=== PATIENT | male | born 1940 | race Caucasian/White ===

== ENCOUNTER 2023-04-28 19:30 | Outpatient (CLI) | payer MEDICARE, OTHER | END 2023-04-28 23:59 | disposition short-term general hospital (02) | LOC: EMS 19:30 | DX: R53.1 Weakness (principal); R53.83 Other fatigue; R17 Unspecified jaundice; Z79.02 Long term (current) use of antithrombotics/antiplatelets; E16.2 Hypoglycemia, unspecified; R40.0 Somnolence; R63.0 Anorexia | CPT/HCPCS: A0425; A0427 ==